=== PATIENT | female | born 1990 | race Caucasian/White ===

== ENCOUNTER 2021-04-14 08:12 | Emergency (ER) | payer BC, SELFPAY ==
--- NOTE | ~2021-04-14 | US_ITS ---
EXAMINATION: US pelvic complete w TV DATE: 04/14/2021 10:26 INDICATION: Right lower quadrant abdominal pain. TECHNIQUE: Multiple transabdominal and transvaginal sonographic images of the pelvis were obtained. COMPARISON: CT abdomen and pelvis 04/14/2021 FINDINGS: TRANSABDOMINAL ULTRASOUND: The uterus measures 3.0 x 1.9 x 2.1 cm. There is no free fluid in the pelvis. TRANSVAGINAL ULTRASOUND: The endometrial complex measures 5 mm in thickness. The right ovary measures 0.8 x 1.6 x 0.7 cm. The left ovary measures 0.5 x 1.4 x 0.5 cm. There is normal vascular flow in the ovaries. IMPRESSION: 1. Normal pelvis. Reviewed, dictated and finalized at location A. IMPRESSION: 1. Normal pelvis.
--- NOTE | ~2021-04-14 | CT_ITS ---
EXAMINATION: CT abdomen pelvis w con DATE: 04/14/2021 09:23 INDICATION: Right lower quadrant abdominal pain. TECHNIQUE: Computed tomography (CT) of the abdomen and pelvis was performed with 100 mL Omnipaque 350 intravenous contrast. Automated exposure control and iterative reconstruction technique were employe d. The dose-length product was 1145.62 mGy-cm. COMPARISON: CT abdomen and pelvis 08/15/2015 FINDINGS: The visualized portions of the lung bases demonstrate minimal atelectasis on the left. No p leural effusion. The heart size is normal. No pericardial effusion. There is diffuse hepatic steatosi s. The gallbladder, spleen, pancreas, adrenal glands, and kidneys are normal. There are no dilated lo ops of bowel. The appendix is normal. There are no pathologically enlarged lymph nodes. There is no f ree intraperitoneal fluid. There are chronic bilateral L5 pars defects. There is mild lumbar spondylo sis. IMPRESSION: 1. Diffuse hepatic steatosis. Reviewed, dictated and finalized at location A.
[2021-04-14 08:21] VITALS: BP 121/86; PULSE 113; RESP 18; TEMP 36.2; O2SAT 95
--- NOTE | 2021-04-14 08:27 | PC.NURSE ---
Arrives ambulatory steady gait from triage, c/o x1 day non-radiating RLQ bloating pain, denies N/V, LBM this am soft and normal . Hx IBS, reports last flare-up Sunday. Denies urinary s/s
[2021-04-14 08:44] LABS: Basophils Absolute Auto 0.1 K/mm3 (0.0-0.1); Eosinophils Absolute Auto 0.3 K/mm3 (0-0.3); Hematocrit 43.9 % (37.0-47.0); Hemoglobin 14.9 g/dL (12.0-15.0); Immature Granulocyte Absolute 0.02 K/mm3 (0.00-0.031); Immature Granulocyte Percent A 0.2 % (0-0.5); Lymphocytes Absolute Auto 3.48 K/mm3 (0.9-3.2); Lymphocytes Percent Auto 42.4 % (18.3-44.2); Mean Corpuscular HGB Conc 33.9 g/dl (32-36); Mean Corpuscular Volume 88.3 fl (80-100); Mean Platelet Volume 9.8 fl (7.4-10.4); Monocytes Absolute Auto 0.6 K/mm3 (0.1-0.6); Monocytes Percent Auto 7.7 % (2.6-8.5); Neutrophils Absolute Auto 3.7 K/mm3 (1.3-6.7); Neutrophils Percent Auto 45.7 % (45.5-73.1); Platelet Count Result 253 k/mm3 (150-375); Red Blood Count 4.97 M/mm3 (4.2-5.4); Red Cell Distribution Width 11.6 % (11.5-14.5); White Blood Count 8.2 K/mm3 (4.5-10.0)
[2021-04-14 08:48] LABS: Add Urine Microscopic? YES; Appearance Urine Clear (Clear); Bilirubin Urine Negative (Negative); Blood Urine Negative (Negative); Color Urine Yellow (Yellow); Glucose Urine UA Negative (Negative); Ketones Urine Negative (Negative); Leukocyte Esterase Ur 1+ LEU/UL (Negative); Mucus Urine Rare /lpf; Nitrate Urine Negative (Negative); Protein Urine Negative (Negative); Specific Grav Ur 1.024 (1.001-1.035); Squamous Epithelial Cell Urine Occasional /hpf (Few); Urobilinogen Urine Negative mg/dL (<2.0); WBC Urine 0-3 /hpf
--- NOTE | 2021-04-14 08:48 | ED.ABDPAIN ---
HPI - Abdominal Pain General Chief Complaint: Abdominal Pain Stated Complaint: abd pain Time Seen by Provider: 04/14/21 08:20 Source: patient and RN notes reviewed Mode of arrival: ambulatory Limitations: no limitations History of Present Illness HPI narrative: This is a 30 year old female who presents for evaluation of right lower abdominal pain. She developed pain yesterday at 3 am . Her pain has been constant and it is gradually worsened. Pain is worse with walking and movement. She states she does not have any pain while just laying in bed. she denies nausea, vomiting, fever or chills. She also denies urinary symptoms. She also denies abnormal vaginal discharge. She has not had a menses since she was 16 years old. She has not taken anything for pain. Pain is currently 4/10. Related Data Home Medications Medication Instructions Recorded Confirmed No Home Medications 04/14/21 04/14/21 Allergies Allergy/AdvReac Type Severity Reaction Status Date / Time Penicillins Allergy Severe Anaphylactic Unverified 04/14/21 09:06 Shock Review of Systems Review of Systems: All systems reviewed & are unremarkable except as noted in HPI and below PMFSH Past Medical History Medical History (Updated 04/14/21 @ 10:55 by Brandy Nguyen MD) Amenorrhea Surgical History Surgical History (Updated 04/14/21 @ 08:53 by Brandy Nguyen MD) H/O right knee surgery Social History Social History (Updated 04/14/21 @ 08:52 by Brandy Nguyen MD) Smoking status: Never smoker Gender identity (if verbalized by the patient): Female Exam Const: General: no acute distress and alert Orientation/consciousness: patient oriented x3 Eyes: EOM: EOMs intact bilaterally Resp: Effort & Inspection: normal respiratory effort and no retractions Auscultation: clear to auscultation bilaterally Cardio: Rate: regular rate Rhythm: regular rhythm Heart sounds: no murmurs GI: GI Palp: Yes Soft to palpation, Yes Tenderness to palpation present (GI) (RLQ) and No Guarding due to palpation present (GI) Skin: General skin exam: normal color Rashes: no rashes Neuro: General: patient oriented x3, moves all extremities and CN's II-XI intact bilaterally Course Reevaluation(s) Reevaluation #1: I have discussed with patient labs and imaging are unremarkable. She will follow up with PCP if pain continues or return to ER if it worsens. Date: 04/14/21 Time: 10:53 Vital Signs Vital signs: Vital Signs Temperature 97.1 F L 04/14/21 08:21 Pulse Rate 113 H 04/14/21 08:21 Respiratory Rate 18 04/14/21 08:21 Blood Pressure 121/86 04/14/21 08:21 Pulse Oximetry 95 04/14/21 08:21 Temperature 97.1 F L 04/14/21 08:21 Pulse Rate 58 L 04/14/21 10:43 Respiratory Rate 17 04/14/21 10:43 Blood Pressure 103/68 04/14/21 10:43 Pulse Oximetry 98 04/14/21 10:43 MDM - Abdominal Pain Lab Data Attestation: I reviewed the patient's lab results. Result diagrams: 04/14/21 08:36 04/14/21 08:36 Labs: Lab Results 04/14/21 04/14/21 04/14/21 Range/Units 08:36 08:36 08:37 WBC 8.2 (4.5-10.0) K/mm3 RBC 4.97 (4.2-5.4) M/mm3 Hgb 14.9 (12.0-15.0) g/dL Hct 43.9 (37.0-47.0) % MCV 88.3 (80-100) fl MCH 30.0 (26-34) pg MCHC 33.9 (32-36) g/dl RDW 11.6 (11.5-14.5) % Plt Count 253 (150-375) k/mm3 MPV 9.8 (7.4-10.4) fl Immature Gran % (Auto) 0.2 (0-0.5) % Neut % (Auto) 45.7 (45.5-73.1) % Lymph % (Auto) 42.4 (18.3-44.2) % [place] % (Auto) 7.7 (2.6-8.5) % Eos % (Auto) 3.0 (0-4.4) % Baso % (Auto) 1.0 (0.2-1.2) % Lymph # (Auto) 3.48 H (0.9-3.2) K/mm3 [place] # (Auto) 0.6 (0.1-0.6) K/mm3 Eos # (Auto) 0.3 (0-0.3) K/mm3 Baso # (Auto) 0.1 (0.0-0.1) K/mm3 Abs Immat Gran (auto) 0.02 (0.00-0.031) K/mm3 Absolute Neuts (auto) 3.7 (1.3-6.7) K/mm3 Absolute Nucleated RBC 0.0 (0.0-0.012) K/mm3 Nuc
[2021-04-14 08:54] LABS: Alanine Aminotransferase 50 U/L (4-35); Albumin Level 4.7 g/dL (3.5-5.1); Alkaline Phosphatase 69 U/L (38-126); Anion Gap 8 mmol/L (8-16); Aspartate Amino Transferase 36 U/L (14-36); Bilirubin,Total 0.5 mg/dL (0.2-1.3); Blood Urea Nitrogen 15 mg/dL (7-17); Calcium 9.8 mg/dL (8.4-10.2); Carbon Dioxide 27 mmol/L (22-30); Chloride 105 mmol/L (98-107); Estimated CRCL calculation 95 ml/min; Estimated Glomerular Filt Rate > 60; Glucose 94 mg/dL (65-105); Lipase 186 U/L (23-300); Potassium 3.8 mmol/L (3.4-5.0); Sodium 140 mmol/L (137-145)
[2021-04-14] MEDS: LACTATED RINGERS 1,000 ML 999 ML IV CONT (09:06)
--- NOTE | 2021-04-14 09:35 | PC.NURSE ---
Pt returned from imaging via cart, IV fluid bolus infusing. Pt resting on cart, denies N/V/D
--- NOTE | 2021-04-14 10:05 | PC.NURSE ---
Pt off floor to US via WC
[2021-04-14] MEDS: KETOROLAC 30 MG/ML VIAL (*BKC) IV PUSH (10:37)
[2021-04-14 10:43] VITALS: BP 103/68; PULSE 58; RESP 17; O2SAT 98
== END 2021-04-14 11:12 | disposition home or self-care (01) ==
PROVIDERS: Emergency Provider General Practice; PCP Internal Medicine
DX: R10.31 Right lower quadrant pain (principal); K76.0 Fatty (change of) liver, not elsewhere classified
CPT/HCPCS: 36415; 74177; 76830; 76856; 80053; 81001; 81025; 83690; 85025; 96361; 96374; 96375; 99284; J0131; J1885; J7120; Q9967